=== PATIENT | female | born 1990 | race Caucasian/White ===

== ENCOUNTER 2018-03-14 16:55 | Inpatient (IN) | payer OTHER ==
[~2018-03-14] VITALS: Ht 162.6 cm; Wt 75.3 kg
[~2018-03-14 16:55] MED LIST: PEPCID40 MG PO; PHENERGAN25 MG PO
== END 2018-03-15 09:45 | disposition home or self-care (01) | DRG 780 ==
LOC: LDR 16:55
PROC: BY4FZZZ Ultrasonography of Third Trimester, Single Fetus (ICD-10-PCS; principal; 2018-03-14)
PROC: 4A1HXCZ Monitoring of Products of Conception, Cardiac Rate, External Approach (ICD-10-PCS; 2018-03-14)
DX: O47.1 False labor at or after 37 completed weeks of gestation (principal); O13.3 Gestational [pregnancy-induced] hypertension without significant proteinuria, third trimester; G44.89 Other headache syndrome

== ENCOUNTER 2018-03-18 14:00 | Inpatient (IN) | payer OTHER ==
[~2018-03-18] VITALS: Ht 162.6 cm; Wt 75.3 kg
[2018-03-19] MEDS ORDERED: PRENATAL TABLE1 EAC1 PO (07:13)
== END 2018-03-21 13:27 | DRG 775 ==
LOC: OB/GYN 03-19 04:38 → LDR 03-19 04:38 → OB/GYN 03-19 14:23
PROC: 10E0XZZ Delivery of Products of Conception, External Approach (ICD-10-PCS; principal; 2018-03-19)
PROC: 0UQGXZZ Repair Vagina, External Approach (ICD-10-PCS; 2018-03-19)
PROC: 4A033R1 Measurement of Arterial Saturation, Peripheral, Percutaneous Approach (ICD-10-PCS; 2018-03-19)
PROC: 4A1HXCZ Monitoring of Products of Conception, Cardiac Rate, External Approach (ICD-10-PCS; 2018-03-19)
DX: O71.4 Obstetric high vaginal laceration alone (principal); Z3A.38 38 weeks gestation of pregnancy; Z37.0 Single live birth

== ENCOUNTER → 2019-03-26 | Outpatient (CLI) | payer OTHER ==
[~2019-03-26] MED LIST changes: +PRENATAL TABLE1 EAC1 PO
== END | disposition home or self-care (01) ==
LOC: PRENATAL 13:00
DX: O36.4XX0 Maternal care for intrauterine death, not applicable or unspecified (principal); Z36.89 Encounter for other specified antenatal screening

== ENCOUNTER 2019-03-28 21:38 | Inpatient (IN) | payer OTHER ==
[~2019-03-28] VITALS: Ht 160 cm; Wt 176.0 kg
== END 2019-03-30 16:11 | disposition home or self-care (01) | DRG 770 ==
LOC: LDR 21:38 → OB/GYN 03-29 19:54
PROVIDERS: ADMIT Specialist
PROC: 10D17ZZ Extraction of Products of Conception, Retained, Via Natural or Artificial Opening (ICD-10-PCS; principal; 2019-03-29)
DX: O02.1 Missed abortion (principal)